=== PATIENT | male | born 1995 | race Hispanic/Latino ===

== ENCOUNTER → 2019-07-03 | Outpatient (CLI) | payer OTHER ==
--- NOTE | 2019-07-04 02:17 | REP ---
Clinical: Dyspnea . Comparison: None . Technique: PA and lateral. Findings: The mediastinum and cardiac silhouette are normal. The lung chatman are clear and without acute consolidation, effusion, or pneumothorax. The skeletal structures are intact and normal. Impression: 1. No acute cardiopulmonary process. Electronically Signed by Maxx Hills MD 07/04/2019 02:10 A
== END ==
LOC: M SMT 11:25
PROVIDERS: ATTEND Physician Assistant
DX: R06.00 Dyspnea, unspecified (principal)